=== PATIENT | female | born 1960 | race Caucasian/White ===

== ENCOUNTER → 2021-06-01 11:38 | Outpatient (BNVA) | payer MEDICARE, MEDICAID, SELFPAY | PROVIDERS: PCP Internal Medicine; Visit Provider Internal Medicine | DX: M54.16 Radiculopathy, lumbar region (principal); Z79.899 Other long term (current) drug therapy | CPT/HCPCS: 99202 ==

== ENCOUNTER 2021-06-15 12:59 | Outpatient (REF) | payer MEDICARE, MEDICAID, SELFPAY ==
--- NOTE | ~2021-06-15 | MR_ITS ---
EXAMINATION: MR LUMBAR SPINE WITHOUT CONTRAST CLINICAL INFORMATION: Radiculopathy. COMPARISON: Lumbar spine MRI 11/25/2017. TECHNIQUE: MRI of the lumbar spine was obtained using routine sequences without contrast. FINDINGS: The lumbar vertebral bodies maintain normal heights. There is trace retrolisthesis of L2 on L3 and L3 on L4. There is multilevel intervertebral disc height loss with most advanced at L2-L3, L3-L4, and L4-L5, similar compared with prior. Mild amount of endplate edema is seen at the T11-T12 level, new from prior with associated progressive disc height loss. Marrow edema is seen within the right-sided L5 and S1 pedicles reflecting stress response, new from prior. The distal spinal cord appears normal. The conus medullaris terminates normally at the L1 level. A splenule is noted just superior to the left kidney, unchanged from prior. The extraspinal soft tissues are otherwise within normal limits. SPINAL LEVELS: T10-T11: Disc bulging without spinal canal stenosis. Moderate right neural foraminal stenosis, progressed from prior. T11-T12: Disc bulging. No spinal canal stenosis. Mild to moderate bilateral neural foraminal stenosis, similar to prior. L1-L2: Disc bulging asymmetric to the left with facet arthropathy. Severe left neural foraminal stenosis, progressed from prior. No spinal canal stenosis. L2-L3: Disc bulging with mild facet arthropathy. Mild spinal canal stenosis with encroachment on the subarticular zones. Moderate left and severe right neural foraminal stenosis, progressed on the left. L3-L4: Disc bulging with right subarticular protrusion, ligamentum flavum infolding, moderate facet arthropathy results in mild spinal canal stenosis and right subarticular stenosis, progressed from prior. Severe right neural foraminal stenosis, stable from prior. L4-L5: Disc bulging with ligamentum flavum infolding and severe facet arthropathy resulting in mild to moderate spinal canal stenosis and left more than right subarticular stenosis. Severe bilateral neural foraminal stenosis, similar to prior. L5-S1: Disc bulging with central protrusion and severe facet arthropathy. Mild spinal canal stenosis with bilateral subarticular stenosis, progressed from prior. Severe left neural foraminal stenosis without progression from prior with significant compression of the exiting left L5 nerve root. Progressive moderate right neural foraminal stenosis. MR/MR lumbar spine wo con IMPRESSION: Multilevel degenerative spondylosis with interval progression compared with 2018. Bone marrow edema/stress response seen within the right L5 and S1 pedicles, new from prior. At L5-S1 there is progressive severe left neural foraminal stenosis with significant compression of the exiting left L5 nerve root. At L1-L2 there is progressive severe left neural foraminal stenosis. At L2-L3 there is progressive moderate left and unchanged severe right neural foraminal stenosis. At L3-L4 there is unchanged severe right neural foraminal stenosis. At L4-L5 there is unchanged mild to moderate spinal canal stenosis and severe bilateral neural foraminal stenosis.
== END 2021-06-15 13:00 | disposition home or self-care (01) ==
LOC: HO.MRI 12:59
PROVIDERS: Visit Provider Internal Medicine
DX: M54.16 Radiculopathy, lumbar region (principal)
CPT/HCPCS: 72148

== ENCOUNTER → 2021-07-03 10:59 | Outpatient (BNVA) | payer MEDICARE, MEDICAID, SELFPAY | PROVIDERS: PCP Internal Medicine; Visit Provider Internal Medicine | DX: Z13.89 Encounter for screening for other disorder (principal) | CPT/HCPCS: Q3014 ==

== ENCOUNTER 2021-08-12 07:38 | Outpatient (REF) | payer MEDICARE, MEDICAID, SELFPAY ==
--- NOTE | ~2021-08-12 | FL_ITS ---
EXAMINATION: XR FLUOROSCOPY WITH IMAGES CLINICAL INFORMATION: M54.16 - Radiculopathy, lumbar region COMPARISON: MR lumbar spine 06/15/2021 TECHNIQUE: Fluoroscopy performed by Dr. Erlin Shin. Fluoroscopy time: 0.6 minutes DAP: 1.79 Gycm2 Images: 3 FINDINGS: There is an interlaminar spinal needle at lumbosacral junction with tip just left of midline. There is contrast seen in the posterior epidural space. No vascular communication. There are degenerative disc changes L4-L5. FL/FL guidance in treatment room IMPRESSION: Fluoroscopy for pain management procedure.
== END 2021-08-12 07:39 | disposition home or self-care (01) ==
LOC: HO.RADIR 07:38
PROVIDERS: Visit Provider Internal Medicine
DX: M54.16 Radiculopathy, lumbar region (principal)
CPT/HCPCS: 62323; J1040

== ENCOUNTER → 2021-10-05 10:51 | Outpatient (BNVA) | payer MEDICARE, MEDICAID, SELFPAY | PROVIDERS: PCP Internal Medicine; Visit Provider Internal Medicine | DX: M54.16 Radiculopathy, lumbar region (principal) | CPT/HCPCS: Q3014 ==